=== PATIENT | male | born 1940 | race Caucasian/White ===

== ENCOUNTER 2021-11-30 19:23 | Emergency (ER) | payer MEDICARE, OTHER ==
[2021-12-01 01:40] VITALS: BP 146/81
== END 2021-12-01 01:49 | disposition home or self-care (01) ==
LOC: ER 19:23
DX: Z00.00 Encounter for general adult medical examination without abnormal findings (principal); E78.5 Hyperlipidemia, unspecified; I10 Essential (primary) hypertension; Z76.0 Encounter for issue of repeat prescription